=== PATIENT | female | born 1955 | race African-American/Black ===

== ENCOUNTER 2019-07-12 07:33 | Inpatient (IN) | payer BC, OTHER ==
[~2019-07-12] VITALS: Ht 175.3 cm; Wt 77.1 kg
[2019-07-12 09:04] LABS: PLATELET COUNT 71 x10^3mcL (130-400); RED CELL DISTRIBUTION WIDTH 20.1 % (11.5-14.5)
[2019-07-12 09:09] LABS: UA SPECIFIC GRAVITY 1.015 (1.005-1.035); microscopic required? YES; urine erythrocyte 2+ (NEGATIVE)
[2019-07-12 09:19] LABS: CALCIUM 6.5 mg/dL (8.5-10.1); CARBON DIOXIDE 16.4 mmol/L (21-32); CREATININE SERUM 1.6 mg/dL (0.6-1.0)
[2019-07-12 09:28] LABS: ALBUMIN 0.9 g/dL (3.4-5.0); CHOLESTEROL/HDL RATIO 8.3; TOTAL PROTEIN, SERUM 6.1 g/dL (6.4-8.2)
[2019-07-12 09:31] LABS: BILIRUBIN TOTAL 12.07 mg/dL (0.20-1.00)
[2019-07-12 09:36] LABS: BAND NEUTROPHIL 8 % (0-10); MONOCYTE 6 % (0-7); SEGMENTED NEUTROPHILS 81 % (37-75); rbc morphology (normal/abnorm) ABNORMAL (NORMAL)
[2019-07-12 09:37] LABS: PLATELET MORPHOLOGY LARGE PLATELET SEEN
[2019-07-12 09:38] LABS: T3 TOTAL 0.22 ng/mL
[2019-07-12 11:57] LABS: FREE T4 0.96 ng/dL (0.76-1.46)
[2019-07-12 11:58] LABS: FREE THYROXINE INDEX 0.5 ug/dL (1.4-4.5); T4(THYROXINE) 1.4 ug/dL (4.7-13.3)
[2019-07-12] MEDS ORDERED: VITAMIN C500 M6 PO (12:59)
[2019-07-12] MEDS ORDERED: ALDACTONE25 MG PO ×2 (12:59→13:10)
[2019-07-12] MEDS ORDERED: ATIVAN0.5 M1 PO (13:00)
[2019-07-12] MEDS ORDERED: NATURE'S BLEND F1 MG PO (13:01)
[2019-07-12] MEDS ORDERED: GERI-LANTA355 ML PO (13:01)
[2019-07-12] MEDS ORDERED: DULCOLAX10 M1 PR (13:01)
[2019-07-12] MEDS ORDERED: LOPRESSOR50 M1 PO (13:02)
[2019-07-12] MEDS ORDERED: MOM PO (13:03)
[2019-07-12] MEDS ORDERED: MIRALAX17 GM PO (13:07)
[2019-07-12] MEDS ORDERED: PRO40 PO (13:07)
[2019-07-12] MEDS ORDERED: SENNA8.6 M2 PO (13:08)
[2019-07-12] MEDS ORDERED: [UNRECOGNIZED DRUG - OTHER] PO (13:08)
[2019-07-12] MEDS ORDERED: THIAMINE HCL100 MG PO (13:09)
[2019-07-12] MEDS ORDERED: THERAPEUTIC-M1 EAC2 PO (13:09)
[2019-07-12] MEDS ORDERED: ULTRAM50 MG PO ×2 (13:09→13:12)
[2019-07-12] MEDS ORDERED: METOPROLOL TART25 M1 PO (13:10)
[2019-07-12] MEDS ORDERED: POTASSIUM CHLO10 MEQ PO (13:12)
[2019-07-12 14:09] VITALS: BP 83/47
[2019-07-12 21:00] VITALS: BP 88/48
[2019-07-13] VITALS (7 sets, daily range): BP systolic 77–107; BP diastolic 38–47
[2019-07-13 07:03] LABS: CALCIUM 6.5 mg/dL (8.5-10.1); CARBON DIOXIDE 14.8 mmol/L (21-32); CREATININE SERUM 1.9 mg/dL (0.6-1.0); MAGNESIUM 2.8 mg/dL (1.8-2.4); POTASSIUM SERUM 4.9 mmol/L (3.5-5.1)
[2019-07-13 08:30] LABS: PHOSPHOROUS 5.1 mg/dL (2.5-4.9)
[2019-07-13 10:42] LABS: BASOPHIL % 0 % (0-2); PLATELET COUNT 75 x10^3mcL (130-400); RED CELL DISTRIBUTION WIDTH 20.1 % (11.5-14.5)
[2019-07-14 05:20] VITALS: BP 80/38
[2019-07-14 09:06] VITALS: Ht 175.3 cm; Wt 77.1 kg
== END 2019-07-14 18:30 | disposition expired | DRG 871 ==
LOC: ED 07:33 → IC 11:30 → DU 11:30 → IC 07-13 15:48 → DU 07-14 02:05 → MU 07-14 04:19 → DU 07-14 05:27
PROVIDERS: Internal Medicine; Specialist; ADMIT Internal Medicine
DX: A41.9 Sepsis, unspecified organism (principal); J96.01 Acute respiratory failure with hypoxia; J18.9 Pneumonia, unspecified organism; N17.0 Acute kidney failure with tubular necrosis; E43 Unspecified severe protein-calorie malnutrition; C78.00 Secondary malignant neoplasm of unspecified lung; D68.9 Coagulation defect, unspecified; G89.29 Other chronic pain; E86.0 Dehydration; Z66 Do not resuscitate; D64.9 Anemia, unspecified; Z51.5 Encounter for palliative care; E83.51 Hypocalcemia; D69.6 Thrombocytopenia, unspecified; Z92.21 Personal history of antineoplastic chemotherapy; Z85.3 Personal history of malignant neoplasm of breast; Z92.3 Personal history of irradiation; Z68.25 Body mass index [BMI] 25.0-25.9, adult
CPT/HCPCS: 36600; 82962; 83880; 84439; 87804; G0378; J2060; J2270; J2543; J3370; J3430; J3490; J3535; J7030; J7040; J7042; P9047; Q0092; U0002